=== PATIENT | female | born 1960 | race Caucasian/White ===

== ENCOUNTER 2017-02-12 18:27 | Emergency (ER) | payer OTHER ==
[2017-02-12 18:40] VITALS: BP 154/93
--- NOTE | 2017-02-12 18:46 | UC ---
Headache HPI - HPI Summary HPI Summary: 56 YEAR OLD FEMALE PRESENTS WITH COMPLAINS OF SEVERE HEADACHE AND VERTIGO. SHE HAS BEEN WORKED UP FOR A STROKE IN A PAST. - History Of Current Complaint Chief Complaint: UCHeadache Stated Complaint: HEAD PAIN Time Seen by Provider: 02/12/17 18:42 Hx Obtained From: Patient Onset/Duration: Sudden Onset Onset Of Symptoms: Sudden Pain Scale Used: 0-10 Numeric - 5 Timing: Constant Character: Sharp Location of Headache: Diffuse Aggravating Factor: Nothing Allevating Factors: Nothing Associated Signs And Symptoms: Positive: Negative - Allergies/Home Medications Allergies/Adverse Reactions: Allergies Allergy/AdvReac Type Severity Reaction Status Date / Time Ibuprofen Allergy Severe FACIAL RASH Verified 12/23/14 19:47 MILK Allergy Unknown Uncoded 12/23/14 19:47 Reaction Details PMH/Surg Hx/FS Hx/Imm Hx Previously Healthy: Yes - Surgical History Surgical History: Yes Surgery Procedure, Year, and Place: 2010 RIGHT TRIGGER THUMB [facility]. 2010 LEFT TRIGGER FINGER RELEASE [facility]. 2001 HYSTERECTOMY. LEFT KNEE. SINUS SURGERY 1991 [place]. CATARACT R REPAIR. BILATERAL CARPAL TUNNEL SURGERY 1989 [place]. CATARACT L REPAIR 2012. HSTERRECTOMY - Family History Known Family History: Positive: None - Social History Alcohol Use: Daily Substance Use Type: None Smoking Status (MU): Never Smoked Tobacco Review of Systems Constitutional: Negative Skin: Negative Eyes: Negative ENT: Negative Respiratory: Negative Cardiovascular: Negative Gastrointestinal: Negative Genitourinary: Negative Motor: Negative Neurovascular: Negative Musculoskeletal: Negative Neurological: Headache Psychological: Negative All Other Systems Reviewed And Are Negative: Yes Physical Exam Triage Information Reviewed: Yes Vital Signs: Initial Vital Signs Temp 36.4 C 02/12/17 18:29 Pulse 62 02/12/17 18:29 Resp 20 02/12/17 18:29 BP 154/93 02/12/17 18:29 Pulse Ox 100 02/12/17 18:29 Vital Signs Reviewed: Yes Eye Exam: Normal ENT Exam: Normal Dental: Positive: Abscess @ Neck exam: Normal Neck: Positive: 1 Respiratory Exam: Normal Cardiovascular Exam: Normal Abdominal Exam: Normal Musculoskeletal Exam: Normal Neurological Exam: Normal Psychological Exam: Normal Skin Exam: Normal Headache Course/Dx - Differential Dx/Diagnosis Provider Diagnoses: RIGHT LOWER MOLAR ABSCESS Discharge - Discharge Plan Condition: Stable Disposition: HOME Prescriptions: Amoxicillin PO (*) [Amoxicillin 875 MG (*)] 875 mg PO BID #14 tab Methylprednisolone [Medrol Dosepak 4 MG*] 4 mg PO .SEE TIERRA INSTRUCTION #21 tab Neomyc/Polym/HC 1% OTIC SUSP* [Cortisporin Otic Susp 1%*] 4 drop BOTH EARS QID # 1 btl Patient Education Materials: Sinusitis (ED), Migraine Headache (ED) Referrals: Ilya Bowden MD [Primary Care Provider] -
== END 2017-02-12 19:11 | disposition home or self-care (01) ==
LOC: UCEAST 18:27
DX: K04.7 Periapical abscess without sinus (principal); Z88.6 Allergy status to analgesic agent
CPT/HCPCS: 99212; G0463

== ENCOUNTER 2017-02-15 16:51 | Emergency (ER) | payer OTHER ==
[2017-02-15] MEDS ORDERED: Meclizine TAB* 12.5 MG PO ONE ×2 (17:16→20:01)
--- NOTE | 2017-02-15 18:14 | RAD ---
INDICATION: Dizziness. COMPARISON: There are no prior studies available for comparison. TECHNIQUE: Contiguous axial sections of the brain were obtained from the skull base to the vertex without contrast. FINDINGS: The ventricles, cisterns and sulci are within normal limits. No significant focal abnormality or mass effect is seen. There is no evidence for hemorrhage. No significant focal osseous abnormality is seen. The visualized portion of the paranasal sinuses and mastoid air cells appear clear. IMPRESSION: NO EVIDENCE FOR ACUTE INTRACRANIAL ABNORMALITY.
--- NOTE | 2017-02-15 18:18 | RAD ---
INDICATION: Dizziness. COMPARISON: Comparison is made with a prior study from September 15, 2004. TECHNIQUE: AP and lateral views of the chest were obtained. FINDINGS: The heart is within normal limits in size. Mediastinal and hilar contours appear within normal limits. The lungs are clear. No pleural effusion is present. IMPRESSION: NO EVIDENCE FOR ACTIVE CARDIOPULMONARY DISEASE.
[2017-02-15 18:48] LABS: Hematocrit 39 % (35-47); Hemoglobin 13.4 g/dl (12.0-16.0); Mean Corpuscular HGB Conc 34 g/dl (31-36); Mean Corpuscular Hemoglobin 32 pg (27-31); Mean Corpuscular Volume 95 fL (80-97); Mean Platelet Volume 9 um3 (7.4-10.4); Red Blood Count 4.14 10^6/ul (4.0-5.4); Red Cell Distribution Width 13 % (10.5-15); White Blood Count 10.1 10^3/ul (3.5-10.8)
[2017-02-15 19:06] LABS: Albumin 4.3 g/dL (3.2-5.2); BUN/Creatinine Ratio 17.5 (8-20); Calcium 9.4 mg/dL (8.6-10.3); EGFR Non-African American 59.8 (>60); Globulin 3.2 g/dL (2-4); Potassium 3.5 mmol/L (3.5-5.0); Total Bilirubin 0.6 mg/dL (0.2-1.0); Total Protein 7.5 g/dL (6.4-8.9)
[2017-02-15 19:08] LABS: Troponin I 0.01 ng/mL (<0.04)
--- NOTE | 2017-02-15 20:04 | ED ---
Teresa Raygoza SooYoung, scribed for Shaun Hdez on 02/15/17 at 1701 . Dizziness - HPI Summary HPI Summary: A 56 y/o F presents to ED with c/o dizziness initial onset a few days ago, worsening this AM approx 1130. Associated sx: HENNING, sinus pressure, ear pain L worse than R. Denies: fever, CP, SOB. Seen [place] [facility] [place], dx: ear infection , sinus infection, was given Rx for Amoxicillin, Prednisone, ear drops. Non- smoker. ETOH. No drugs. - History Of Current Complaint Chief Complaint: EDDizziness Stated Complaint: DIZZY Time Seen by Provider: 02/15/17 16:58 Hx Obtained From: Patient, Family/[employer] Onset/Duration: Still Present Timing: Constant Severity Initially: Moderate Severity Currently: Moderate Character: Dizzy Associated Signs And Symptoms: Positive: Other: - HENNING, sinus pressure, ear pain. Negative: Chest Pain, SOB, Fever - Allergies/Home Medications Allergies/Adverse Reactions: Allergies Allergy/AdvReac Type Severity Reaction Status Date / Time Ibuprofen Allergy Severe FACIAL RASH Verified 12/23/14 19:47 MILK Allergy Unknown Uncoded 12/23/14 19:47 Reaction Details PMH/Surg Hx/FS Hx/Imm Hx Previously Healthy: No Endocrine/Hematology History: Reports: Hx Anemia Denies: Hx Diabetes Cardiovascular History: Denies: Hx Hypertension, Hx Pacemaker/ICD Respiratory History: Reports: Hx Asthma - USES AN ALBUTEROL INHALER GI History: Reports: Hx Gastroesophageal Reflux Disease - TAKES MEDICATION, Hx Irritable Bowel, Other GI Disorders - ULCERATIVE COLITIS History: Denies: Hx Renal Disease Musculoskeletal History: Reports: Hx Arthritis - BILATERAL HANDS AND KNEES Sensory History: Reports: Hx Cataracts - BILATERAL, Hx Contacts or Glasses - GLASSES Denies: Hx Hearing Aid Opthamlomology History: Reports: Hx Cataracts - BILATERAL, Hx Contacts or Glasses - GLASSES Psychiatric History: Denies: Hx Panic Disorder - Surgical History Surgery Procedure, Year, and Place: 2010 RIGHT TRIGGER THUMB [facility]. 2010 LEFT TRIGGER FINGER RELEASE [facility]. 2002 HYSTERECTOMY. LEFT KNEE. SINUS SURGERY 1991 [place]. CATARACT R REPAIR. BILATERAL CARPAL TUNNEL SURGERY 1989. CATARACT L REPAIR 2012. HSTERRECTOMY Hx Anesthesia Reactions: No Infectious Disease History: Denies: Hx Clostridium Difficile, Hx Hepatitis, Hx Human Immunodeficiency Virus (HIV), Hx of Known/Suspected MRSA, Hx Shingles, Hx Tuberculosis, Hx Known/ Suspected VRE, Hx Known/Suspected VRSA, History Other Infectious Disease, Traveled Outside the [place] in Last 30 Days - Family History Known Family History: Positive: Other - neg: Breast CA - Social History Occupation: Employed Full-time Lives: With Family Alcohol Use: Daily Hx Substance Use: No Substance Use Type: Reports: None Hx Tobacco Use: No Smoking Status (MU): Never Smoked Tobacco Review of Systems Negative: Fever Positive: Ear Ache - L worse than R, Other - pos: sinus pressure Negative: Chest Pain Negative: Shortness Of Breath Neurological: Other - pos: dizziness Positive: Headache All Other Systems Reviewed And Are Negative: Yes Physical Exam Triage Information Reviewed: Yes Vital Signs On Initial Exam: Initial Vitals Temp Pulse Resp BP Pulse Ox 97.7 F 66 20 167/87 100 02/15/17 16:54 02/15/17 16:54 02/15/17 16:54 02/15/17 16:54 02/15/17 16:54 Vital Signs Reviewed: Yes Appearance: Positive: Well-Appearing, No Pain Distress Skin: Positive: Warm, Skin Color Reflects Adequate Perfusion, Dry Head/Face: Positive: Normal Head/Face Inspection Eyes: Positive: EOMI, MACO ENT: Positive: Other - Erythema over L ear canal, R ear nml Neck: Positive: Supple, Nontender Respiratory/Lung Sounds: Positive: Clear to Auscultation, Breath Sounds Present Cardiovascular: Positive: RRR, Pulses are Symmetrical in both Upper and Lower Extremities Abdomen Description: Positive: Nontender, Soft Bowel Sounds: Positive: Present Musculoskeletal: Positive: Normal, Strength/ROM Intact Neurological: Positive: Normal, Sensory/Motor Intact, Alert, Oriented to Person Place, Time, Other - Dizziness when she moves her head. Diagnostics - Vital Signs Vital Signs Temp Pulse Resp BP Pulse Ox 02/15/17 16:54 97.7 F 66 20 167/87 100 - Laboratory Result Diagrams: 02/15/17 18:25 02/15/17 18:25 Lab Statement: Any lab studies that have been ordered have been reviewed, and results considered in the medical decision making process. - Radiology CXR Xray Interpretation: No Acute Changes - IMPRESSION: No evidence for active cardiopulmonary dz. ED physician has reviewed this radiology report and agrees. Radiology Interpretation Completed By: Radiologist - CT BRAIN CT CT Interpretation: No Acute Changes - IMPRESSION: No evidence for acute intracranial pathology. ED physician has reviewed this radiology report and agrees. CT Interpretation Completed By: Radiologist - EKG 1729 Cardiac Rate: Bradycardia - 58 bpm EKG Rhythm: Sinus Bradycardia EKG Interpretation: no acute changes. Re-Evaluation - Re-Evaluation 1 Re-Evaluation Time: 20:02 Change: Improved Comment: Pt feeling better after the Antivert. Dizzy Course/Dx - Course Course Of Treatment: A 56 y/o F presents with c/o dizziness initial onset a few days ago, worsening this AM approx 1130. Associated sx: HENNING, sinus pressure, ear pain L worse than R. Denies: fever, CP, SOB. Seen [place] [facility], dx: ear infection, sinus infection, was given Rx for Amoxicillin, Prednisone, ear drops. Pt given Antivert in ED. Pt has dizziness when she moves her head. Bloodwork obtained. Brain CT shows no acute findings. CXR shows no acute findings. Pt improved after Antivert. Will D/C home with Antivert, to f/u with PCP. - Diagnoses Provider Diagnoses: Vertigo Discharge - Discharge Plan Condition: Stable Disposition: HOME Prescriptions: Meclizine HCl [Meclizine 25] 25 mg PO TID #20 tab Patient Education Materials: Vertigo (ED), Meclizine (By mouth) Referrals: Ilya Bowden MD [Primary Care Provider] - Additional Instructions: Follow up with your primary care provider in 3 days. Please return to the ED if you experiencing new or worsening symptoms. The documentation as recorded by the Teresa brennan SooYoung accurately reflects the service I personally performed and the decisions made by me, Shaun Hdez.
[2017-02-15 20:23] VITALS: BP 140/71
== END 2017-02-15 20:23 | disposition home or self-care (01) ==
LOC: ED 16:51
DX: R42 Dizziness and giddiness (principal); R51 Headache; H92.02 Otalgia, left ear
CPT/HCPCS: 36415; 70450; 71020; 80053; 84484; 85025; 85610; 85730; 93005; 99283; A9270-GY